=== PATIENT | female | born 1990 | race Caucasian/White ===

== ENCOUNTER → 2021-10-05 09:30 | Outpatient (CLI) | payer BC, SELFPAY ==
--- NOTE | ~2021-10-05 | US_ITS ---
EXAMINATION: US OB <= 14 weeks fetus DATE: 10/05/2021 09:57 INDICATION: Encounter for screening, unspecified. TECHNIQUE: Real-time transabdominal pelvic ultrasound was performed. COMPARISON: None. FINDINGS: The uterus measures 16.5 x 6.4 x 12.1 cm. The cervical length is normal on transabdominal images. The re is an intrauterine gestational sac. The crown rump length measures 6.1 cm, which correlates with an estimated gestational age of 12 weeks and 4 day(s) (+/-) 1 week(s) and 1 day(s). heart motion is identified measuring 166 beats per minute (bpm) by M-mode Doppler. There is a 1.2 x 1.2 x 3 .1 cm subchorionic hematoma. The right ovary measures 6.2 x 3.3 x 4.6 cm. The left ovary measures 3.5 x 2.2 x 2.7 cm. There is no free fluid in the pelvis. IMPRESSION: 1. Single living intrauterine gestation with estimated date of delivery of 04/15/2022. 2. Small subchorionic hematoma. Reviewed, dictated and finalized at location A. IMPRESSION: 1. Single living intrauterine gestation with estimated date of delivery of 04/04. 2. Small subchorionic hematoma.
== END ==
PROVIDERS: PCP Family Medicine; Visit Provider Advanced Practice Midwife
DX: Z36.9 Encounter for antenatal screening, unspecified (principal); Z3A.00 Weeks of gestation of pregnancy not specified
CPT/HCPCS: 76801

== ENCOUNTER → 2021-11-03 10:32 | Outpatient (CLI) | payer BC, SELFPAY ==
--- NOTE | ~2021-11-03 | US_ITS ---
EXAMINATION: US OB follow up DATE: 11/03/2021 11:03 INDICATION: Subchorionic hematoma follow-up during second trimester TECHNIQUE: Real-time ultrasound of the pelvis was performed. The interpreting radiologist was not pre sent for the study. COMPARISON: 10/05/2021 FINDINGS: There is a single living fetus in breech presentation. The placenta is anterior and partial ly covers the internal cervical os. There is an 11 mm x 9 mm hypoechoic area of the placenta with int erval decrease in size. cardiac activity and movement are noted. heart rate is 152 beats per minute (bpm). The amniotic fluid index is subjectively normal. IMPRESSION: 1. Single living fetus in breech presentation. 2. Subchorionic hematoma with decrease in size. 3. Low-lying placenta. Reviewed, dictated and finalized at location A.
== END ==
PROVIDERS: PCP Obstetrics & Gynecology Gynecology; Visit Provider Obstetrics & Gynecology Gynecology
DX: O36.8910 Maternal care for other specified fetal problems, first trimester, not applicable or unspecified (principal); O44.42 Low lying placenta NOS or without hemorrhage, second trimester; Z3A.00 Weeks of gestation of pregnancy not specified
CPT/HCPCS: 76816

== ENCOUNTER → 2021-11-28 08:30 | Outpatient (CLI) | payer BC, SELFPAY ==
--- NOTE | ~2021-11-28 | US_ITS ---
EXAMINATION: US OB /maternal detail DATE: 11/28/2021 09:18 INDICATION: Second trimester anatomic survey TECHNIQUE: Real-time ultrasound of the pelvis was performed. COMPARISON: 11/03/2021 FINDINGS: There is a single living fetus in breech presentation. The placenta is anterior and 5.4 cm from the i nternal cervical os. A previously described subchorionic hematoma is no longer evident. The cervical length is 3.9 cm. heart rate is 144 beats per minute (bpm). cardiac activity and m ovement are noted. The amniotic fluid index is subjectively normal. The following anatomy was identified as normal: 4 chamber heart 3 vessel cord cord insertion kidneys urinary bladder stomach spine diaphragm ventricles cisterna magna cerebellum The following biometric data were obtained: Biparietal diameter (BPD): 4.5 cm; head circumference (HC): 17.3 cm; abdominal circumference (AC): 14 .4 cm; femur length (FL): 3.0 cm. These measurements are concordant. Estimated weight is 300 g +/- 45 g, which correlates with the 13th percentile when 04/15/2022 is used as estimated date of delivery. As single measurements, these parameters are each equal to the following estimated gestational ages w ith ranges of +/- 2 standard deviations: BPD: 19 weeks 5 days ( 18 weeks 0 days - 21 weeks 3 days). HC: 19 weeks 6 days ( 18 weeks 3 days - 21 weeks 2 days). AC: 19 weeks 5 days ( 17 weeks 5 days - 21 weeks 5 days). FL: 19 weeks 2 days ( 17 weeks 4 days - 21 weeks 1 days). estimated gestational age based solely on measurements from this exam is 19 weeks 5 days +/- 1 weeks 3 days. IMPRESSION: 1. Single living fetus in breech presentation. 2. Estimated weight is 300 g +/- 45 g, which correlates with the 13th percentile when 04/15/2022 is used as estimated date of delivery. Reviewed, dictated and finalized at location A. IMPRESSION: 1. Single living fetus in breech presentation. 2. Estimated weight is 300 g +/- 45 g, which correlates with the 13th per centile when 04/15/2022 is used as estimated date of delivery.
== END ==
PROVIDERS: PCP Family Medicine; Visit Provider Advanced Practice Midwife
DX: Z36.9 Encounter for antenatal screening, unspecified (principal); Z3A.19 19 weeks gestation of pregnancy
CPT/HCPCS: 76805

== ENCOUNTER 2022-01-23 10:40 | Outpatient (RCR) | payer BC, SELFPAY ==
[2022-01-24] MEDS: RHO(D) IMMUNE GLOBULIN 300 MCG/2 ML SYRINGE IM (15:37)
== END 2022-04-23 23:59 | disposition home or self-care (01) ==
LOC: ANHLAB 10:40
PROVIDERS: PCP Family Medicine; Visit Provider Obstetrics & Gynecology Gynecology
DX: Z29.13 Encounter for prophylactic Rho(D) immune globulin (principal); O36.0190 Maternal care for anti-D [Rh] antibodies, unspecified trimester, not applicable or unspecified; Z3A.00 Weeks of gestation of pregnancy not specified
CPT/HCPCS: 36415; 85461; 86850; 86900; 86901; 90384; 96372; J2790

== ENCOUNTER → 2022-02-16 13:28 | Outpatient (CLI) | payer BC, SELFPAY ==
--- NOTE | ~2022-02-16 | US_ITS ---
EXAMINATION: US OB follow up DATE: 02/16/2022 13:48 INDICATION: Size greater than dates during third trimester TECHNIQUE: Real-time ultrasound of the pelvis was performed. The interpreting radiologist was not pre sent for the study. COMPARISON: 11/28/2021 FINDINGS: There is a single living fetus in vertex presentation. The placenta is anterior. card iac activity and movement are noted. heart rate is 133 beats per minute (bpm). The amniot ic fluid index is 14.5 cm which is normal (normal range: 8.8 cm to 23.4 cm). The following biometric data were obtained: Biparietal diameter (BPD): 7.9 cm; head circumference (HC): 28.8 cm; abdominal circumference (AC): 26 .9 cm; femur length (FL): 6.0 cm. These measurements are concordant. Estimated weight is 1701 g +/- 255 g, which correlates with the 21st percentile when 04/15/2022 is used as estimated date of delivery. As single measurements, these parameters are each equal to the following estimated gestational ages w ith ranges of +/- 2 standard deviations: BPD: 31 weeks 4 days ( 28 weeks 4 days - 34 weeks 5 days). HC: 31 weeks 5 days ( 28 weeks 5 days - 34 weeks 5 days). AC: 31 weeks 0 days ( 28 weeks 0 days - 34 weeks 0 days). FL: 31 weeks 0 days ( 28 weeks 0 days - 34 weeks 0 days). estimated gestational age based solely on measurements from this exam is 31 weeks 2 days +/- 2 weeks 1 days. IMPRESSION: 1. Single living fetus in vertex presentation. 2. Estimated weight is 1701 g +/- 255 g, which correlates with the 21st percentile when 04/15/19 23 is used as estimated date of delivery. 3. Normal amniotic fluid index. Reviewed, dictated and finalized at location A. ANIMAL TRAINER IMPRESSION: 1. Single living fetus in vertex presentation. 2. Estimated weight is 1701 g +/- 255 g, which correlates with the p ercentile when 04/15/2022 is used as estimated date of delivery. 3. Normal amniotic fluid index.
== END ==
PROVIDERS: PCP Family Medicine; Visit Provider Obstetrics & Gynecology Gynecology
DX: O36.63X0 Maternal care for excessive fetal growth, third trimester, not applicable or unspecified (principal); Z3A.31 31 weeks gestation of pregnancy
CPT/HCPCS: 76816

== ENCOUNTER 2022-04-05 10:09 | Outpatient (CLI) | payer BC, SELFPAY ==
[2022-04-05] VITALS (7 sets, daily range): BP systolic 107–115; BP diastolic 72–81; PULSE 81–100
[2022-04-05 10:55] LABS: Basophils Percent Auto 0.3 % (0.2-1.2); Eosinophils Absolute Auto 0.1 K/mm3 (0-0.3); Eosinophils Percent Auto 1.1 % (0-4.4); Hemoglobin 12.2 g/dL (12.0-15.0); Immature Granulocyte Absolute 0.04 K/mm3 (0.00-0.031); Immature Granulocyte Percent A 0.4 % (0-0.5); Lymphocytes Absolute Auto 1.73 K/mm3 (0.9-3.2); Lymphocytes Percent Auto 18.6 % (18.3-44.2); Mean Corpuscular HGB Conc 33.9 g/dl (32-36); Mean Corpuscular Volume 94.5 fl (80-100); Mean Platelet Volume 9.3 fl (7.4-10.4); Monocytes Absolute Auto 0.6 K/mm3 (0.1-0.6); Monocytes Percent Auto 6.5 % (2.6-8.5); Neutrophils Absolute Auto 6.8 K/mm3 (1.3-6.7); Neutrophils Percent Auto 73.1 % (45.5-73.1); Platelet Count Result 229 k/mm3 (150-375); Red Blood Count 3.81 M/mm3 (4.2-5.4); Red Cell Distribution Width 12.7 % (11.5-14.5); White Blood Count 9.3 K/mm3 (4.5-10.0)
[2022-04-05 11:06] LABS: Alanine Aminotransferase 21 U/L (6-35); Albumin Level 3.2 g/dL (3.5-5.1); Alkaline Phosphatase 103 U/L (38-126); Anion Gap 5 mmol/L (8-16); Aspartate Amino Transferase 22 U/L (14-36); Bilirubin,Total 0.4 mg/dL (0.2-1.3); Blood Urea Nitrogen 9 mg/dL (7-17); Calcium 8.3 mg/dL (8.4-10.2); Carbon Dioxide 22 mmol/L (22-30); Chloride 107 mmol/L (98-107); Estimated Glomerular Filt Rate > 60; Glucose 81 mg/dL (65-110); Potassium 3.9 mmol/L (3.4-5.0); Sodium 134 mmol/L (137-145); Uric Acid 3.6 mg/dL (2.5-7.5)
[2022-04-05 11:31] LABS: Appearance Urine Slightly Cloudy (Clear); Bilirubin Urine Negative (Negative); Blood Urine Negative (Negative); Color Urine Yellow (Yellow); Glucose Urine UA Negative (Negative); Ketones Urine Negative (Negative); Leukocyte Esterase Ur 1+ LEU/UL (NEGATIVE); Nitrate Urine Negative (Negative); Protein Urine 1+ mg/dL (Negative); Specific Grav Ur 1.015 (1.001-1.035); Urobilinogen Urine 0.2 mg/dL (<2.0); pH Urine 8.5 (5.0-9.0)
[2022-04-05 11:36] LABS: Bacteria Urine Trace /hpf; Mucus Urine Rare /lpf; Squamous Epithelial Cell Urine Many /hpf (Few)
[2022-04-05 11:40] LABS: Creatinine Urine 111.2 mg/dL
[2022-04-05 11:47] LABS: Total Protein Urine Random < 5 mg/dL; Ur Ttl Prot Creatinine Ratio < 0.04 mg/mg (0-0.20)
[2022-04-05 11:52] LABS: Add Urine Microscopic? YES
--- NOTE | 2022-04-05 11:56 | PC.NURSE ---
1149--Report to Gregory Mcdonald CNM re: reactive NST, v.s., labwork WNL. Orders to NM home.
== END 2022-04-05 11:55 | disposition home or self-care (01) ==
LOC: ANHOBOP 10:14 → ANHOBPP 10:14
PROVIDERS: PCP Family Medicine; Visit Provider Advanced Practice Midwife
DX: O13.9 Gestational [pregnancy-induced] hypertension without significant proteinuria, unspecified trimester (principal); Z3A.00 Weeks of gestation of pregnancy not specified
CPT/HCPCS: 36415; 59025; 80053; 81001; 82570; 84156; 84550; 85025; 87086; 99199

== ENCOUNTER 2022-04-14 18:00 | Inpatient (IN) | payer BC, SELFPAY ==
[2022-04-14] VITALS (16 sets, daily range): BP systolic 112–153; BP diastolic 58–101; PULSE 101–113; RESP 15–17; TEMP 36.6–37.2; BMI 30.2
--- NOTE | 2022-04-14 18:08 | LDADM ---
This patient, Shakira Sotelo, was admitted to Labor/Delivery/Recovery 106 on 04/14/22 at 18:00. Plans for labor, pain management and were discussed with patient. Patient/family oriented to hospital policies and general routines including ID bracelet, bed and alarms, visiting hours, pain management, procedures, bathroom and other care routines, personal items, smoking policy, room service/diet and guest tray routines, infant security routines, and visiting hours. Patient/Family are encouraged to report perceived risks to care and to ask questions if they do not understand what they are told or what they should do. See OBIX for further documentation.
[2022-04-14 18:24] LABS: Basophils Percent Auto 0.1 % (0.2-1.2); Eosinophils Percent Auto 0.1 % (0-4.4); Hematocrit 36.5 % (37.0-47.0); Immature Granulocyte Absolute 0.09 K/mm3 (0.00-0.031); Immature Granulocyte Percent A 0.5 % (0-0.5); Lymphocytes Absolute Auto 1.79 K/mm3 (0.9-3.2); Lymphocytes Percent Auto 10.4 % (18.3-44.2); Mean Corpuscular HGB Conc 35.6 g/dl (32-36); Mean Corpuscular Hemoglobin 32.3 pg (26-34); Mean Corpuscular Volume 90.8 fl (80-100); Mean Platelet Volume 9.5 fl (7.4-10.4); Monocytes Absolute Auto 0.8 K/mm3 (0.1-0.6); Monocytes Percent Auto 4.5 % (2.6-8.5); Neutrophils Absolute Auto 14.5 K/mm3 (1.3-6.7); Neutrophils Percent Auto 84.4 % (45.5-73.1); Platelet Count Result 262 k/mm3 (150-375); Red Blood Count 4.02 M/mm3 (4.2-5.4); Red Cell Distribution Width 12.6 % (11.5-14.5); White Blood Count 17.2 K/mm3 (4.5-10.0)
[2022-04-14 18:33] LABS: Alanine Aminotransferase 26 U/L (6-35); Alkaline Phosphatase 142 U/L (38-126); Anion Gap 12 mmol/L (8-16); Aspartate Amino Transferase 26 U/L (14-36); Bilirubin,Total 0.5 mg/dL (0.2-1.3); Blood Urea Nitrogen 9 mg/dL (7-17); Calcium 8.7 mg/dL (8.4-10.2); Carbon Dioxide 15 mmol/L (22-30); Chloride 106 mmol/L (98-107); Estimated CRCL calculation 151 ml/min; Estimated Glomerular Filt Rate > 60; Glucose 93 mg/dL (65-110); Potassium 3.8 mmol/L (3.4-5.0); Sodium 133 mmol/L (137-145)
--- NOTE | 2022-04-14 18:53 | WPDHPUPDATE1 ---
History and Physical Update Update Date/Time: 04/14/22 18:53 History and Physical has been reviewed, including an updated exam of the patient. There are NO changes in the patient's condition. Risks, benefits, and alternatives have been discussed and questions answered. Patient agrees to proceed with procedure.
--- NOTE | 2022-04-14 18:53 | WPDOBADMIT ---
Obstetrics - Admit Note Admission Note: record reviewed. No pertinent additions to the history and/or any subsequent changes in the physical findings that are not consistent with the expected course of the were found. Additions to the history and/or subsequent changes in the physical findings follow. None.
[2022-04-14] MEDS: OXYTOCIN 30 UNITS/NS 500 ML 30 UNITS/500 ML BAG 999 UNITS IV CONT (21:24)
--- NOTE | 2022-04-14 21:45 | PM.OBPRVD ---
OB - Delivery Note Procedure Delivery augmentation: Rupture of Membranes Delivery monitor: External FHT and External Uterine Route of delivery: Episiotomy description: None Laceration Description: Perineal - 2nd Degree Delivery repair: chromic Specimen: No Quantitative Blood Loss (ml): 350 Anesthesia type: Local Disposition: Floor Complications: none Narrative: patient prepped and draped in usual manner for this procedure. Maternal expulsive efforts readily delivered vertex over intact perineum. Rest baby was delivered without difficulty cord clamped and cut and placenta delivered spontaneously. Cervix vagina vulva were inspected with second-degree midline laceration noted. This was injected with 1% lidocaine and then closed using 2-0 chromic in a running interlocking manner to approximate the vaginal mucosa deep tissue in the subcuticular layer to approximate the perineum. At this point the procedure was considered terminated with the immediate postoperative condition of mother baby both excellent. Baby Weeks of gestation at delivery: 39 Infant gender: Female presentation: vertex position: Right Occiput Anterior Placenta delivery description: Spontaneous Cord Vessel Description: 3 Vessels score one minute: 8 score five minutes: 9 AMG Delivery Billing Delivery Delivery: Delivery Charge
[2022-04-14] MEDS: OXYTOCIN 30 UNITS/NS 500 ML 30 UNITS/500 ML BAG 125 UNITS IV CONT (21:55)
[2022-04-14] MEDS: BENZOCAINE 20% AER SPR (*SP) 56 GM CAN 1 SPRAY TOPICAL (21:59)
[2022-04-14] MEDS: WITCH HAZEL 40 PADS 1 PAD TOPICAL (21:59)
[2022-04-14] MEDS: IBUPROFEN 600 MG TABLET PO (21:59)
[2022-04-15 00:05] VITALS: BP 115/65; PULSE 95; RESP 18; TEMP 36.4; O2SAT 98
[2022-04-15] MEDS: ACETAMINOPHEN 325 MG TABLET 650 MG PO (00:40)
[2022-04-15] MEDS: LANOLIN (LANSINOH) 7.5 GM CREAM 1 APPLIC TOPICAL (00:41)
--- NOTE | 2022-04-15 01:45 | OBPPTRN ---
04/14/2022 at 2352 Patient transferred to post room #288 via wheelchair. Support person present. Patient and significant other oriented to unit, room, information board, rooming in, admission packet and security measures. Patient verbalizes understanding.
[2022-04-15 03:45] VITALS: BP 101/62; PULSE 90; RESP 16; TEMP 36.5; O2SAT 99
[2022-04-15 05:22] LABS: Hematocrit 33.3 % (37.0-47.0); Hemoglobin 11.4 g/dL (12.0-15.0)
[2022-04-15 08:00] VITALS: BP 109/73; PULSE 94; RESP 18; TEMP 36.7; O2SAT 98
[2022-04-15] MEDS: IBUPROFEN 600 MG TABLET PO ×2 (08:46→16:28)
[2022-04-15] MEDS: DOCUSATE SODIUM 100 MG CAPSULE PO ×2 (09:31→16:28)
[2022-04-15] MEDS: MULTIVIT/MIN/PREN/FOL AC/IRON TABLET 1 TAB PO (09:32)
[2022-04-15 12:30] VITALS: BP 113/77; PULSE 96; RESP 16; TEMP 36.6; O2SAT 98
--- NOTE | 2022-04-15 12:34 | PM.OBDSVD ---
DS: Admitting Diagnosis Discharge Date 04/16/2022 Admitting Diagnosis DS: Discharge Diagnosis Discharge Diagnosis (1) , delivered: Code(s): O80 - Encounter for full-term uncomplicated delivery Status: Acute OB - DS: Summary OB Procedures : None OB Procedures Intrapartum: Spontaneous Vag Delivery OB Procedures: : None Time Spent with Patient Time attestation: Total time spent providing and/or coordinating discharge services: DS: Data Data Completed and Pending Labs on day of discharge: Labs from last 24 hours 04/15/22 04/14/22 04/14/22 05:14 18:07 18:07 WBC RBC Hgb 11.4 L Hct 33.3 L MCV MCH MCHC RDW Plt Count MPV Immature Gran % (Auto) Neut % (Auto) Lymph % (Auto) Bell % (Auto) Eos % (Auto) Baso % (Auto) Lymph # (Auto) Bell # (Auto) Eos # (Auto) Baso # (Auto) Abs Immat Gran (auto) Absolute Neuts (auto) Absolute Nucleated RBC Nucleated RBC % Sodium 133 L Potassium 3.8 Chloride 106 Carbon Dioxide 15 L Anion Gap 12 BUN 9 Creatinine 0.50 L Estim Creat Clear Calc 151 Estimated GFR > 60 Glucose 93 Calcium 8.7 Total Bilirubin 0.5 AST 26 ALT 26 Alkaline Phosphatase 142 H Total Protein 7.0 Albumin 4.0 RPR Blood Type B Negative Antibody Screen Positive Antibody Identification Passive Due to RH Imm Glob Antigen Identification Cancelled RICHARD, IgG Interpret Not Performed RICHARD, Poly Interpret Neg RICHARD, Complement Interp Not Performed 04/14/22 04/14/22 18:07 18:07 WBC 17.2 H RBC 4.02 L Hgb 13.0 Hct 36.5 L MCV 90.8 MCH 32.3 MCHC 35.6 RDW 12.6 Plt Count 262 MPV 9.5 Immature Gran % (Auto) 0.5 Neut % (Auto) 84.4 H Lymph % (Auto) 10.4 L Bell % (Auto) 4.5 Eos % (Auto) 0.1 Baso % (Auto) 0.1 L Lymph # (Auto) 1.79 Bell # (Auto) 0.8 H Eos # (Auto) 0.0 Baso # (Auto) 0.0 Abs Immat Gran (auto) 0.09 H Absolute Neuts (auto) 14.5 H Absolute Nucleated RBC 0.0 Nucleated RBC % 0.0 Sodium Potassium Chloride Carbon Dioxide Anion Gap BUN Creatinine Estim Creat Clear Calc Estimated GFR Glucose Calcium Total Bilirubin AST ALT Alkaline Phosphatase Total Protein Albumin RPR Pending Blood Type Antibody Screen Antibody Identification Antigen Identification RICHARD, IgG Interpret RICHARD, Poly Interpret RICHARD, Complement Interp Discharge Plan Discharge Discharging Clinician: Damien Borrego Patient Disposition: Home, Self-Care Activity: as tolerated Diet: as tolerated Patient Instructions: Antibiotic Form Stand Alone Forms: General Discharge Information Follow-up/Referrals: Bettye Jon MD [Physician] - 3 Weeks Discharge Medications: New ibuprofen 600 mg Tablet 600 mg PO Q6H PRN (Reason: Cramping) Qty: 30 0RF Continued ferrous sulfate 325 mg (65 mg iron) Tablet 325 mg PO DAILY #2 Tablet 1 tablet PO HS cholecalciferol (vitamin D3) [Vitamin D3] 125 mcg (5,000 unit) Tablet 125 mcg PO DAILY metoprolol succinate 25 mg Tablet Extended Release 24 Hr 12.5 mg PO DAILY PRN (Reason: arrythmia ) Date of admission: 04/14/22 18:00 Primary Care Provider: Leora,Femi Mathis Admitting Provider: Bettye Jon Attending physician on admission: Bettye Jon Condition: Stable
[2022-04-15 16:45] VITALS: BP 105/71; PULSE 103; RESP 18; TEMP 36.8; O2SAT 100
[2022-04-15 20:05] VITALS: BP 115/71; PULSE 93; RESP 16; TEMP 36.9; O2SAT 98
--- NOTE | 2022-04-16 08:07 | PM.OBPNVD ---
OB - PN: Subj Subjective Date/time seen: 04/16/22 08:07 Patient comments: no complaints, pain well controlled and other (leaking urine when stands) [place] baby status: doing well OB - PN: Obj Data Labs 04/15/22 05:14 04/14/22 18:07 OB - PN A/P Plan day: 2 Plan: routine care, discharge home, follow up 6 weeks and other (plans micronor for bc) Time Spent With Patient Time: Total time spent is greater than 50% in coordination of care (as documented) at patient's floor/unit and/or counseling patient: Exam : Bimanual exam- vagina & uterus: other (Uterus firm, nt @U)
[2022-04-16 08:10] VITALS: BP 114/77; PULSE 87; RESP 16; TEMP 36.9; O2SAT 99
--- NOTE | 2022-04-16 09:54 | PC.NURSE ---
Pharmacist Apprentice will not be in today, went in and told pt, she just fed baby and states she felt better about the feeding and latch. States baby seems satisfied, she will pump on the side she used the nipple shield. Talked to her about our outpatient services which can be found in the mom baby guide, verbalizes understanding.
[2022-04-16 16:43] LABS: Rapid Plasma Reagin Non-Reactive (NonReactive)
[2022-04-17 10:59] VITALS: BP 125/85; PULSE 92; RESP 12; TEMP 36.9; O2SAT 100
== END 2022-04-16 12:20 | disposition home or self-care (01) | DRG 807 ==
LOC: ANHLDR 18:48 → ANHOB2 04-15 12:35 → ANHLDR 04-17 09:41 → ANHOB2 04-17 09:41
PROVIDERS: Admitting Provider Obstetrics & Gynecology Gynecology; PCP Family Medicine; Visit Provider Obstetrics & Gynecology
DX: O76 Abnormality in fetal heart rate and rhythm complicating labor and delivery (principal); Z37.0 Single live birth; O70.1 Second degree perineal laceration during delivery; O77.0 Labor and delivery complicated by meconium in amniotic fluid; Z3A.39 39 weeks gestation of pregnancy
CPT/HCPCS: 36415; 80053; 85014; 85018; 85025; 86592; 86850; 86880; 86900; 86901; A9270; J2590

== ENCOUNTER 2023-03-19 00:35 | Emergency (ER) | payer BC, SELFPAY ==
[2023-03-19 00:42] VITALS: BP 114/76; PULSE 77; RESP 16; TEMP 36.3; O2SAT 100
[2023-03-19 01:13] LABS: Appearance Urine Clear (Clear); Bacteria Urine None Seen /hpf; Bilirubin Urine Negative (Negative); Blood Urine 3+ (Negative); Color Urine Yellow (Yellow); Glucose Urine UA Negative (Negative); Ketones Urine Trace mg/dL (Negative); Leukocyte Esterase Ur Negative LEU/UL (Negative); Nitrate Urine Negative (Negative); Non Pathogenic Casts 0-2; Protein Urine Negative (Negative); RBC Urine 51-100 /hpf (0-2); Squamous Epithelial Cell Urine None seen /hpf (Few); WBC Urine 0-5 /hpf
[2023-03-19 01:16] LABS: Add Urine Microscopic? YES
[2023-03-19 01:46] LABS: Basophils Percent Auto 0.6 % (0.2-1.2); Eosinophils Absolute Auto 0.2 K/mm3 (0-0.3); Eosinophils Percent Auto 2.8 % (0-4.4); Hematocrit 33.7 % (37.0-47.0); Hemoglobin 10.6 g/dL (12.0-15.0); Immature Granulocyte Absolute 0.01 K/mm3 (0.00-0.031); Immature Granulocyte Percent A 0.1 % (0-0.5); Lymphocytes Absolute Auto 2.97 K/mm3 (0.9-3.2); Lymphocytes Percent Auto 44.4 % (18.3-44.2); Mean Corpuscular HGB Conc 31.5 g/dl (32-36); Mean Corpuscular Volume 95.5 fl (80-100); Mean Platelet Volume 9.7 fl (7.4-10.4); Monocytes Absolute Auto 0.5 K/mm3 (0.1-0.6); Neutrophils Percent Auto 45.1 % (45.5-73.1); Platelet Count Result 258 k/mm3 (150-375); Red Blood Count 3.53 M/mm3 (4.2-5.4); Red Cell Distribution Width 12.6 % (11.5-14.5); White Blood Count 6.7 K/mm3 (4.5-10.0)
--- NOTE | 2023-03-19 02:18 | ED.FEMALEGU ---
HPI - Female Genitourinary General Chief complaint: Vaginal Bleeding Stated complaint: vaginal bleeding Time Seen by Provider: 03/19/23 01:17 Source: patient Mode of arrival: ambulatory Limitations: no limitations History of Present Illness HPI Narrative: Patient is a 32-year-old female who presents the ED with report of vaginal bleeding. Patient reports she started her normal menstrual cycle on Saturday. She was experiencing some right lower quadrant pain at that time which has since resolved. Bleeding became heavier today and patient reported she was saturating super tampons every 30 minutes to 1 hour. She also noted having large clots, up to the size of a golf ball. Patient reports she typically has heavy menstrual cycles, but not usually this heavy. She denies any further pain. Denies dizziness, lightheadedness, nausea, vomiting, fevers. CODY is Dr. Jon. Denies previous hx of endometriosis. Related Data Home Medications Medication Instructions Recorded Confirmed cholecalciferol (vitamin D3) 125 125 mcg PO DAILY 03/29/22 04/14/22 mcg (5,000 unit) tablet (Vitamin D3) ferrous sulfate 325 mg (65 mg 325 mg PO DAILY 03/29/22 04/14/22 iron) tablet metoprolol succinate 25 mg 12.5 mg PO DAILY PRN arrythmia 03/29/22 03/29/22 tablet,extended release 24 hr prenat.vits,harika,[id number] 1 tablet PO HS 03/29/22 04/14/22 Allergies Allergy/AdvReac Type Severity Reaction Status Date / Time No Known Allergies Allergy Verified 03/29/22 14:40 Review of Systems Review of Systems: CONSTITUTIONAL: Denies fever, chills, or sweats. GASTROINTESTINAL: See HPI. GENITOURINARY: See HPI. All systems reviewed & are unremarkable except as noted in HPI and below PMFSH Family History Family History Grandparent Parkinsons disease Dementia Hypertension Grandparent Hypertension Grandparent Breast cancer Social History Social History Smoking status: Never smoker Substance use: never Lack of Transportation: No Lack of Food: Never True Current Housing: I Have Housing Concerned About Future Housing: No Difficulty Paying Gas/Electric Bills: No Difficulty Paying for Meds: No Currently Unemployed: No Education: Bachelor's Degree Difficulty w/ Childcare or Family Care: No Spiritual care concerns: No Exam Narrative: GENERAL: Well appearing, well-nourished, non-toxic, in no acute distress. HEAD: Normocephalic, atraumatic. RESPIRATORY: Airway patent, respirations nonlabored. Clear to auscultation bilaterally, no rales, rhonchi, wheezing. CARDIOVASCULAR: Regular rate and rhythm. ABDOMINAL: Soft, no tenderness throughout abdomen, nondistended. Normoactive BS. PELVIC: Normal external genitalia. Small amount of dark red vaginal bleeding in vaginal vault. No clots noted. Cervix appears normal. Small amount of blood coming from cervical os. No significant CMT. No evidence of hemorrhage or pooling of fluid. MUSCULOSKELETAL: Moves all extremities. No gross deformities. SKIN: Warm, dry, normal color. NEURO: A&O X3. Speech clear. Cranial nerves II-XII grossly intact. Steady gait. No ataxic movements. PSYCHIATRIC: Appropriate mood and affect. Normal interaction. Course Vital Signs Vital signs: Vital Signs Temperature 97.3 F L 03/19/23 00:42 Pulse Rate 77 03/19/23 00:42 Respiratory Rate 16 03/19/23 00:42 Blood Pressure 114/76 03/19/23 00:42 Pulse Oximetry 100 03/19/23 00:42 Temperature 97.3 F L 03/19/23 00:42 Pulse Rate 77 03/19/23 00:42 Respiratory Rate 16 03/19/23 00:42 Blood Pressure 114/76 03/19/23 00:42 Pulse Oximetry 100 03/19/23 00:42 MDM - Female Genitourinary MDM Narrative Medical decision making narrative: Patient presented to ED with abnormal heavy vaginal bleeding, passing large clots. Currently on menstrual
[2023-03-19 02:41] VITALS: BP 116/72; PULSE 70; RESP 15; O2SAT 100
== END 2023-03-19 02:41 | disposition home or self-care (01) ==
PROVIDERS: Emergency Medicine; Emergency Provider Physician Assistant; PCP Family Medicine
DX: N92.0 Excessive and frequent menstruation with regular cycle (principal)
CPT/HCPCS: 36415; 81001; 81025; 85025; 99284

== ENCOUNTER 2023-06-19 15:49 | Outpatient (CLI) | payer BC, SELFPAY ==
[2023-06-19 16:17] LABS: Basophils Percent Auto 0.4 % (0.2-1.2); Eosinophils Absolute Auto 0.1 K/mm3 (0-0.3); Eosinophils Percent Auto 1.1 % (0-4.4); Hematocrit 35.6 % (37.0-47.0); Hemoglobin 11.8 g/dL (12.0-15.0); Immature Granulocyte Absolute 0.03 K/mm3 (0.00-0.031); Immature Granulocyte Percent A 0.3 % (0-0.5); Lymphocytes Absolute Auto 2.48 K/mm3 (0.9-3.2); Lymphocytes Percent Auto 24.6 % (18.3-44.2); Mean Corpuscular HGB Conc 33.1 g/dl (32-36); Mean Corpuscular Hemoglobin 30.5 pg (26-34); Mean Platelet Volume 9.3 fl (7.4-10.4); Monocytes Absolute Auto 0.6 K/mm3 (0.1-0.6); Monocytes Percent Auto 5.5 % (2.6-8.5); Neutrophils Absolute Auto 6.9 K/mm3 (1.3-6.7); Neutrophils Percent Auto 68.1 % (45.5-73.1); Platelet Count Result 289 k/mm3 (150-375); Red Blood Count 3.87 M/mm3 (4.2-5.4); Red Cell Distribution Width 12.5 % (11.5-14.5); White Blood Count 10.1 K/mm3 (4.5-10.0)
[2023-06-19 17:08] LABS: HIV 1/2 Ab P24 Ag Result Negative (Negative)
[2023-06-19 18:36] LABS: Hepatitis B Surface Antigen Negative (Negative); Rubella IgG Antibody 22.9 IU/ML
[2023-06-20 15:52] LABS: Rapid Plasma Reagin Non-Reactive (NonReactive)
== END 2023-06-19 15:50 | disposition home or self-care (01) ==
PROVIDERS: PCP Family Medicine; Visit Provider Obstetrics & Gynecology
DX: N91.2 Amenorrhea, unspecified (principal)
CPT/HCPCS: 36415; 84702; 85025; 86592; 86644; 86703; 86747; 86762; 86787; 86850; 86900; 86901; 87086; 87340; G0432

== ENCOUNTER 2023-10-28 07:29 | Outpatient (RCR) | payer BC, SELFPAY ==
[2023-10-25 12:20] LABS: Mean Corpuscular HGB Conc 33.3 g/dl (32-36); Mean Corpuscular Hemoglobin 31.4 pg (26-34); Mean Corpuscular Volume 94.3 fl (80-100); Mean Platelet Volume 9.1 fl (7.4-10.4); Platelet Count Result 213 k/mm3 (150-375); Red Cell Distribution Width 13.2 % (11.5-14.5); White Blood Count 10.3 K/mm3 (4.5-10.0)
[2023-10-25 12:34] LABS: Glucose 1 Hour PP 50gm Dose 92 mg/dL
[2023-10-25 13:14] LABS: HIV 1/2 Ab P24 Ag Result Negative (Negative)
[2023-10-25 23:11] LABS: Rapid Plasma Reagin Non-Reactive (NonReactive)
[2023-10-28] MEDS: RHO(D) IMMUNE GLOBULIN 300 MCG/2 ML SYRINGE IM (08:51)
== END 2023-10-28 08:00 | disposition home or self-care (01) ==
LOC: ANHLAB 07:29
PROVIDERS: PCP Family Medicine; Visit Provider Student in an Organized Health Care Education/Training Program
DX: Z11.4 Encounter for screening for human immunodeficiency virus [HIV] (principal); Z11.3 Encounter for screening for infections with a predominantly sexual mode of transmission; Z29.13 Encounter for prophylactic Rho(D) immune globulin; O36.0190 Maternal care for anti-D [Rh] antibodies, unspecified trimester, not applicable or unspecified; Z3A.00 Weeks of gestation of pregnancy not specified
CPT/HCPCS: 36415; 82947; 85027; 85461; 86592; 86703; 86850; 86900; 86901; 87086; 90384; 96372; G0432; J2790

== ENCOUNTER 2023-12-23 06:46 | Inpatient (IN) | payer BC, SELFPAY ==
[2023-12-23] VITALS (32 sets, daily range): BP systolic 98–130; BP diastolic 76–91; PULSE 80–119; RESP 16–20; TEMP 36.5–36.9; O2SAT 96–100; BMI 30.6
--- NOTE | 2023-12-23 07:15 | LDADM ---
This patient, Shakira Sotelo, was admitted to Labor/Delivery/Recovery 108 on 12/23/23 at 06:46. Plans for labor, pain management and were discussed with patient. Patient/family oriented to hospital policies and general routines including ID bracelet, bed and alarms, visiting hours, pain management, procedures, bathroom and other care routines, personal items, smoking policy, room service/diet and guest tray routines, infant security routines, and visiting hours. Patient/Family are encouraged to report perceived risks to care and to ask questions if they do not understand what they are told or what they should do. See OBIX for further documentation.
[2023-12-23 07:18] LABS: Basophils Percent Auto 0.4 % (0.2-1.2); Eosinophils Absolute Auto 0.1 K/mm3 (0-0.3); Eosinophils Percent Auto 1.2 % (0-4.4); Hematocrit 32.5 % (37.0-47.0); Hemoglobin 10.9 g/dL (12.0-15.0); Immature Granulocyte Absolute 0.04 K/mm3 (0.00-0.031); Immature Granulocyte Percent A 0.6 % (0-0.5); Lymphocytes Absolute Auto 1.83 K/mm3 (0.9-3.2); Lymphocytes Percent Auto 25.2 % (18.3-44.2); Mean Corpuscular HGB Conc 33.5 g/dl (32-36); Mean Corpuscular Hemoglobin 31.5 pg (26-34); Mean Corpuscular Volume 93.9 fl (80-100); Mean Platelet Volume 9.4 fl (7.4-10.4); Monocytes Absolute Auto 0.5 K/mm3 (0.1-0.6); Monocytes Percent Auto 6.2 % (2.6-8.5); Neutrophils Absolute Auto 4.8 K/mm3 (1.3-6.7); Neutrophils Percent Auto 66.4 % (45.5-73.1); Platelet Count Result 194 k/mm3 (150-375); Red Blood Count 3.46 M/mm3 (4.2-5.4); Red Cell Distribution Width 13.2 % (11.5-14.5); White Blood Count 7.3 K/mm3 (4.5-10.0)
[2023-12-23] MEDS: OXYTOCIN 30 UNITS/NS 500 ML 30 UNITS/500 ML BAG IV CONT (07:41)
[2023-12-23] MEDS: LACTATED RINGERS 1,000 ML 125 ML IV CONT (07:41)
[2023-12-23 08:36] LABS: Rapid Plasma Reagin Non-Reactive (NonReactive)
[2023-12-23 08:46] LABS: HIV 1/2 Ab P24 Ag Result Negative (Negative)
--- NOTE | 2023-12-23 10:07 | WPDHPUPDATE1 ---
History and Physical Update Update Date/Time: 12/23/23 10:07 History and Physical has been reviewed, including an updated exam of the patient. There are NO changes in the patient's condition. Risks, benefits, and alternatives have been discussed and questions answered. Patient agrees to proceed with procedure.
--- NOTE | 2023-12-23 10:07 | PM.OBPRVD ---
OB - Vaginal Delivery Note Procedure Delivery date: 12/23/23 Events: Elective Induction of Labor Induction method: Per Pitocin Protocol Delivery augmentation: Rupture of Membranes Delivery monitor: External FHT and External Uterine Route of delivery: Episiotomy description: None Laceration Description: None Specimen: No Quantitative Blood Loss (ml): 300 Anesthesia type: None Disposition: Floor Complications: No immediate complications Narrative: Patient prepped and draped in usual manner for this procedure. Maternal expulsive efforts readily delivered vertex, rest of baby without difficulty. Cord was clamped cut and placenta delivered spontaneously. Cervix vagina vulva were inspected with no significant lacerations or tears. Uterus was well contracted with minimal bleeding. At this point the procedure was considered terminated. Baby Gestational Age by Date: 40 Infant gender: Male presentation: vertex position: Right Occiput Anterior Placenta delivery description: Spontaneous Cord Vessel Description: 3 Vessels
[2023-12-23] MEDS: IBUPROFEN 600 MG TABLET PO ×3 (10:30→23:30)
[2023-12-23] MEDS: OXYTOCIN 30 UNITS/NS 500 ML 30 UNITS/500 ML BAG 125 UNITS IV CONT (10:30)
--- NOTE | 2023-12-23 13:50 | PC.NURSE ---
Patient transferred to post room #281 via wheel chair. Support person present. Oriented to unit, room, information board, rooming in, admission packet and security measures. Patient verbalizes understanding.
--- NOTE | 2023-12-23 16:05 | PC.NURSE ---
Introductions were made, then consulted with patient to assess needs related to . Discussed with mother her?plans to feed?her and the?experience so far. She has a small blister on the left nipple and we discussed maintaining a deep latch and normal sleepiness in the first 24 hbours. Resources provided for inpatient and outpatient services with the feeding sheet and mom/baby guide. Mother voiced understanding of information and will call if there is a request for assistance. Reported to the Primary RN.
[2023-12-23] MEDS: LANOLIN (LANSINOH) 7.5 GM CREAM 1 APPLIC TOPICAL (16:50)
[2023-12-24 04:15] VITALS: BP 121/84; PULSE 91; RESP 16; TEMP 36.6; O2SAT 97
[2023-12-24 05:12] LABS: Hematocrit 32.2 % (37.0-47.0); Hemoglobin 10.7 g/dL (12.0-15.0)
[2023-12-24] MEDS: IBUPROFEN 600 MG TABLET PO (07:33)
[2023-12-24 07:45] VITALS: BP 116/67; PULSE 94; RESP 18; TEMP 36.4; O2SAT 99
--- NOTE | 2023-12-24 08:10 | PM.OBDSVD ---
DS: Admitting Diagnosis Discharge Date 12/24/2023 Admitting Diagnosis DS: Discharge Diagnosis Discharge Diagnosis (1) , delivered: Code(s): O80 - Encounter for full-term uncomplicated delivery Status: Acute OB - DS: Summary OB Procedures : None OB Procedures Intrapartum: Spontaneous Vag Delivery OB Procedures: : None Peripartum Data Laceration Description: None Episiotomy description: None Time Spent with Patient Time attestation: Total time spent providing and/or coordinating discharge services: DS: Data Data Completed and Pending Labs on day of discharge: Labs from last 24 hours 12/24/23 12/23/23 04:21 07:00 Hgb 10.7 L Hct 32.2 L RPR Non-reactive HIV 1&2 Ab/P24 Ag 4thGn Negative Blood Type B Negative Antibody Screen Positive Antibody Identification Passive Due to RH Imm Glob Antigen Identification Cancelled RICHARD, IgG Interpret Neg RICHARD, Poly Interpret Not Performed RICHARD, Complement Interp Negative Discharge Plan Discharge Discharging Clinician: Damien Borrego Patient Disposition: Home, Self-Care Activity: as tolerated Diet: as tolerated Patient Instructions: Antibiotic Form Stand Alone Forms: General Discharge Information Follow-up/Referrals: Damien Borrego MD [Physician] - 3 Weeks Discharge Medications: New ibuprofen 600 mg Tablet 600 mg PO Q6H PRN (Reason: Cramping) Qty: 30 0RF Continued prenat.vits,harika,[id number] Tablet 1 tablet PO HS metoprolol succinate 25 mg Tablet Extended Release 24 Hr 12.5 mg PO DAILY PRN (Reason: arrythmia ) Date of admission: 12/23/23 06:46 Primary Care Provider: Leora,Femi Mathis Admitting Provider: Damien Borrego Attending physician on admission: Damien Borrego Condition: Stable
--- NOTE | 2023-12-24 11:00 | PC.NURSE ---
Consulted with mother concerning needs and she shared her ability to independently latch infant optimally without pain. Mother is feeding appropriately for growth of and understands stimulating to eat if needed. Infant has had appropriate feedings in the last 24 hours meets the outcomes for weight, output, blood sugar and jaundice at this time. Reinforced understanding of milk production, transition of milk, signs of adequate intake, transition of stool, prevention/relief of engorgement, plugged ducts, mastitis, responsive watching for feeding cues, the different methods of stimulating to breastfeed 1-3 hours after the start of the last feeding, community resources, and when to call a provider using the resource of the feeding sheet along with the mom and baby guide. Mother voiced understanding of the information shared, is confident to continue effectively her infant at home, when to call for assistance, denies any additional assistance or education at this time. Reported to the Primary RN.
[2023-12-24] MEDS: INFLUENZA TRIVALENT VACCINE 45 MCG/0.5 ML SYRINGE IM (13:51)
[2023-12-25 10:33] VITALS: BP 102/73; PULSE 99; RESP 18; TEMP 36.8; O2SAT 100
== END 2023-12-24 15:45 | disposition home or self-care (01) | DRG 807 ==
LOC: ANHLDR 06:50 → ANHOB2 13:57
PROVIDERS: Admitting Provider Obstetrics & Gynecology; PCP Family Medicine; Visit Provider Obstetrics & Gynecology
DX: O80 Encounter for full-term uncomplicated delivery (principal); Z37.0 Single live birth; Z3A.40 40 weeks gestation of pregnancy; Z23 Encounter for immunization
CPT/HCPCS: 36415; 85014; 85018; 85025; 86592; 86703; 86850; 86880; 86900; 86901; 90471; 90656; A9270; G0008; G0432; J2590; J7120